=== PATIENT | male | born 1985 | race Caucasian/White ===

== ENCOUNTER → 2016-09-22 06:11 | Emergency (ER) | payer SELFPAY ==
[~2016-09-22 06:11] MED LIST: Erythromycin OPTH OINT* APPLIC OINT RIGHT EYE SCH
[2016-09-22 09:05] VITALS: BP 120/68
--- NOTE | 2016-09-22 17:44 | ED ---
Vivien Harrison Edward, scribed for Gagan Rod MD on 09/22/16 at 0708 . Throat Pain/Nasal Congestion - HPI Summary HPI Summary: 30 y/o male presents to ED c/o gradual onset R eye pain starting last night. The pain started last night but got severe in the middle of the night. It was rated 2/10 in severity at triage. Pt feels like there may be a piece of fiberglass inside of his eye. The pain is aggravated by opening his eye. 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 Associated sx: erythema of the eye. - History of Current Complaint Chief Complaint: EDEyeProblem Hx Obtained From: Patient Onset/Duration: Gradual Onset, Lasting Days, Still Present Associated Signs And Symptoms: Positive: FB Sensation - Allergies/Home Medications Allergies/Adverse Reactions: Allergies Allergy/AdvReac Type Severity Reaction Status Date / Time No Known Allergies Allergy Verified 09/22/16 06:17 PMH/Surg Hx/FS Hx/Imm Hx Previously Healthy: No Endocrine/Hematology History: Denies: Hx Diabetes - Surgical History Surgery Procedure, Year, and Place: Tonsillectomy Infectious Disease History: No Infectious Disease History: Denies: Traveled Outside the [place] in Last 30 Days - Family History Known Family History: Positive: Diabetes - Grandfather - Social History Occupation: Employed Full-time Lives: Alone Alcohol Use: Rare Hx Substance Use: No Substance Use Type: Reports: None Smoking Status (MU): Unknown if Ever Smoked Review of Systems Constitutional: Negative Eyes: Other - Eye pain Positive: Erythema ENT: Negative Cardiovascular: Negative Respiratory: Negative Gastrointestinal: Negative Genitourinary: Negative Musculoskeletal: Negative Skin: Negative Neurological: Negative Psychological: Normal All Other Systems Reviewed And Are Negative: Yes Physical Exam - Summary Physical Exam Summary: VITAL SIGNS: Reviewed. GENERAL: ~Patient is a well-developed and nourished MALE who is lying comfortable in the stretcher. ~Patient is not in any acute respiratory distress. HEAD AND FACE: No signs of trauma. ~No ecchymosis, hematomas or skull depressions. No sinus tenderness. EYES: PERRLA, EOMI x 2, No injected conjunctiva, no nystagmus. Positive foreign body in R eye @ around 3 o'clock. Positive fluorescein uptake in the same eye. EARS: Hearing grossly intact. Ear canals and tympanic membranes are within normal limits. MOUTH: Oropharynx within normal limits. NECK: Supple, trachea is midline, no adenopathy, no JVD, no carotid bruit, no c- spine tenderness, neck with full ROM. CHEST: Symmetric, no tenderness at palpation LUNGS: Clear to auscultation bilaterally. No wheezing or crackles. CVS: Regular rate and rhythm, S1 and S2 present, no murmurs or gallops appreciated. ABDOMEN: Soft, non-tender. No signs of distention. No rebound no guarding, and no masses palpated. Bowel sounds are normal. EXTREMITIES: FROM in all major joints, no edema, no cyanosis or clubbing. NEURO: Alert and oriented x 3. No acute neurological deficits. Speech is normal and follows commands. SKIN: Dry and warm Triage Information Reviewed: Yes Vital Signs On Initial Exam: Initial Vitals Temp Pulse Resp BP Pulse Ox 98.0 F 58 14 138/90 97 09/22/16 06:15 09/22/16 06:15 09/22/16 06:15 09/22/16 06:15 09/22/16 06:15 Vital Signs Reviewed: Yes Procedures - Eye Procedure Alcaine Drops Administered: No - Tetracaine Eye FB Removal: removal w/ needle Eye Irrigated w/ Saline (ccs): 50 Antibiotic Ointment/Drps Admin: right eye - Bacitracin Diagnostics - Vital Signs Vital Signs Temp Pulse Resp BP Pulse Ox 09/22/16 06:15 98.0 F 58 14 138/90 97 - Laboratory Lab Statement: Any lab studies that have been ordered have been reviewed, and results considered in the medical decision making process. EENT Course/Dx - Course Assessment/Plan: 30 y/o male presents to ED c/o gradual onset R eye pain starting last night. The pain started last night but got severe in the middle of the night. It was rated 2/10 in severity at triage. Pt feels like there may be a piece of fiberglass inside of his eye. The pain is aggravated by opening his eye. 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 Associated sx: erythema of the eye. Positive foreign body in R eye around 3 oclock. Positive fluorescein stain uptake in the same area. We removed the FB in the ED course (see procedure note). We applied tetracaine, symptoms improved. The nurse will give pt erythromycin drops and the patient will f/u with ophthalmology. I discussed all the findings and test results with the patient. Patient was instructed to return to the emergency room immediately if any of the symptoms return or worsens. Plan of care was discussed with the patient and understands and agrees. All questions were answered at patient satisfaction. There were no further complaints or concerns. - Diagnoses Provider Diagnoses: Foreign body, Corneal abrasion Discharge - Discharge Plan Condition: Stable Disposition: HOME Patient Education Materials: Corneal Abrasion (ED), Eye Foreign Body (ED) Referrals: Raji Pantoja MD [Medical Doctor] - 3 Days (PLEASE F/U IN 2-3 DAYS) The documentation as recorded by the Vivien alexis Edward accurately reflects the service I personally performed and the decisions made by me, Gagan Rod MD.
== END | disposition home or self-care (01) ==
LOC: ED 06:11
DX: T15.00XA Foreign body in cornea, unspecified eye, initial encounter (principal); S05.00XA Injury of conjunctiva and corneal abrasion without foreign body, unspecified eye, initial encounter; Y92.9 Unspecified place or not applicable; Y93.9 Activity, unspecified; X58.XXXA Exposure to other specified factors, initial encounter; H57.11 Ocular pain, right eye; L53.9 Erythematous condition, unspecified
CPT/HCPCS: 99281; A9270-GY